=== PATIENT | male | born 1945 | race Caucasian/White ===

== ENCOUNTER 2018-02-17 18:15 | Inpatient (IN) ==
[2018-02-17 19:10] LABS: Basophils % 0.7 %; Eosinophils # 0.2 K/mcL (0.0-0.6); Eosinophils % 3.1 %; Hematocrit 25.7 % (37.5-50.1); Hemoglobin 7.9 g/dL (12.9-16.9); Immature Granulocytes % 0.3 % (0-4); Lymphocytes # 0.8 K/mcL (0.6-4.6); Lymphocytes % 13.3 %; Mean Corpuscular HGB Conc 30.7 g/dL (31.6-35.5); Mean Corpuscular Hemoglobin 18.8 pg (28.0-33.3); Mean Platelet Volume 9.6 fL (9.4-12.4); Monocytes # 0.5 K/mcL (0.0-1.3); Monocytes % 8.1 %; Neutrophils # 4.3 K/mcL (1.6-8.9); Platelet Count 191 K/mcL (140-400); Red Blood Count 4.21 M/mcL (4.19-5.50); Red Cell Distribution Width 15.8 % (11.5-14.5); Segmented Neutrophils % 74.5 %
--- NOTE | 2018-02-17 19:13 | Emergency Department Note ---
Disposition Clinical Impression: Brain mass Anemia Qualifiers: Anemia type: unspecified type Qualified Code(s): D64.9 - Anemia, unspecified CKD (chronic kidney disease) Qualifiers: Chronic kidney disease stage: unspecified stage Qualified Code(s): N18.9 - Chronic kidney disease, unspecified Disposition: Admitted As Inpatient Condition: Fair Referrals: Teddy Cox MD [Primary Care Provider] - Forms: ED Satisfaction Letter Time of Disposition: 20:38 General Adult HPI - General Chief complaint: ED Weakness Stated complaint: Weakness Time Seen by Provider: 02/17/18 18:17 Source: patient, EMS Limitations: no limitations Nursing Notes Reviewed: Yes Vital Signs Reviewed: Yes - History of Present Illness HPI Narrative: Patient does have a history of anemia with blood transfusions and today presents with complaints of weakness of the left arm and left leg the last 7 days which is worsening and had some intermittent episodes of loss of consciousness today. No falls or injuries. The patient does not have any pain in the head, neck, chest, abdomen or back. No medications specifically for the symptoms. The son is here at bedside and he is visiting from [place] and he tells me then the past with the patient was anemic the patient improved with a blood transfusion. The patient does not have any slurred speech. According to the son he is not as sharp mentally as usual. The patient does not have any blood in the urine or stool. Patient did hit his head when he fell off the wheelchair about one week ago. I do not see use of anticoagulant medication. Social history: No smoking or alcohol Pain Scale: 5 - Related Data Home Medications Medication Instructions Recorded Confirmed Naproxen Sodium [Aleve] 440 mg PO HS PRN 02/17/18 02/17/18 Allergies Allergy/AdvReac Type Severity Reaction Status Date / Time No Known Allergies Allergy Verified 02/17/18 19:01 Review of Systems: Constitutional: No fever Vision: No blurred vision ENT: No rhinorrhea Respiratory: No cough Allergic: No allergies : No blood in urine GI: No blood in stool Hematologic: No bruising Dermatologic: No skin rash Musculoskeletal: No pain in the extremities Neuro: No numbness of the extremities Past Medical History - Past Medical History Medical history: Reports: atrial fibrillation, cancer, diabetes, hypertension, renal disease, other Surgical history: Reports: cancer surgery, colectomy, orthopedic, other, other Psychiatric history: Reports: no psych history - Social History Smoking Status: Never smoker Smokeless Tobacco Status: No Alcohol use: Reports: none Drug use: Reports: none Physical Exam CONSTITUTIONAL: Alert, he knows the year is 2017 but thought the month was February and not sure of the day of the week, well-nourished, well appearing, in no apparent distress HEAD: Normocephalic; atraumatic. EYES: PERRL, no scleral icterus. NOSE: The nose is normal in appearance without rhinorrhea RESP: Normal chest excursion with respiration; breath sounds clear and equal bilaterally; no wheezes, rhonchi, or rales CARD: Regular rhythm, without murmurs, rub or gallop ABD: Non-distended; non-tender, soft,without rigidity, rebound or guarding SKIN: Normal for age and race; warm and dry; no apparent lesions - General Limitations: no limitations General appearance: alert, in no apparent distress Course Vital Signs Temperature 97.8 F 02/17/18 18:40 Pulse Rate 83 02/17/18 18:40 Respiratory Rate 16 02/17/18 18:40 Blood Pressure 184/82 02/17/18 18:40 O2 Sat by Pulse Oximetry 100 02/17/18 18:40 Temperature 97.8 F 02/17/18 18:40 Pulse Rate 83 02/17/18 18:40 Respiratory Rate 16 02/17/18 18:40 Blood Pressure 184/82 02/17/18 18:40 O2 Sat by Pulse Oximetry 100 02/17/18 18:40 Oxygen Delivery Oxygen Delivery Room Air Medical Decision Making - [facility] Narrative Medical decision making narrative: Patient's symptoms are concerning for stroke with the left-sided numbness of the left arm and left leg the patient does have testing ordered including CAT scan of the brain, labs and I did review the patient's EKG showing normal sinus rhythm with a rate of 86 and there is evidence of first-degree AV block, this does have minimal low voltage but not quite a degree of the previous EKG from primary 2015. Without acute ischemic change or evidence of arrhythmia [address] I did speak with Dr. Driss [email or web address] m oncology and we discussed the results of the CT scan and the patient's history of colon cancer 2 years ago and plan will be to admit the patient to the hospitalist, Decadron 10 mg IV and then 4 mg every 6 hours, IV Protonix and I did write for the initial dose of Decadron as well as Protonix. Additionally he would like a MRI scan done [place] and I did call and speak with MR and they will do that scan [place] and I also then spoke with the hospitalist accepts the patient for admission and they will follow-up the results of the MRI scan that is being done [place]'s longest results are available tonight or before the morning. The patient is bright and alert. His stroke scale is 0. I did talk the patient And They Do Understand the Results of the Testing and the Severity of Illness. 2033 - Lab Data Lab results reviewed: Yes I reviewed the patient's lab results. Result diagrams: 02/17/18 18:50 02/17/18 18:50 Lab Results 02/17/18 02/17/18 Range/Units 18:50 18:50 WBC 5.8 (4.3-11.1) K/mcL RBC 4.21 (4.19-5.50) M/mcL Hgb 7.9 L (12.9-16.9) g/dL Hct 25.7 L (37.5-50.1) % MCV 61.0 L (83.0-100.0) fL MCH 18.8 L (28.0-33.3) pg MCHC 30.7 L (31.6-35.5) g/dL RDW 15.8 H (11.5-14.5) % Plt Count 191 (140-400) K/mcL MPV 9.6 (9.4-12.4) fL Immature Gran % 0.3 (0-4) % Seg Neutrophils % 74.5 % Lymphocytes % 13.3 % Monocytes % 8.1 % Eosinophils % 3.1 % Basophils % 0.7 % Neutrophils # 4.3 (1.6-8.9) K/mcL Lymphocytes # 0.8 (0.6-4.6) K/mcL Monocytes # 0.5 (0.0-1.3) K/mcL Eosinophils # 0.2 (0.0-0.6) K/mcL Basophils # 0.0 (0.0-0.2) K/mcL Hypochromasia Present A (Not Present) Microcytosis Present A (Not Present) Sodium 136 (136-145) mEq/L Potassium 5.0 (3.5-5.1) mEq/L Chloride 107 (98-107) mEq/L Carbon Dioxide 22 L (23-29) mEq/L BUN 44 H (8-23) mg/dL Creatinine 2.25 H (0.70-1.30) mg/dL Est GFR ( Amer) 35 L (> 60) Est GFR (Non-Af Amer) 29 L (> 60) BUN/Creatinine Ratio 20 (6-26) Glucose 144 H (70-105) mg/dL Calculated Osmolality 296 (280-300) Calcium 9.3 (8.6-10.3) mg/dL Total Bilirubin 0.4 (0.3-1.0) mg/dL Direct Bilirubin 0.1 (0.0-0.2) mg/dL Indirect Bilirubin 0.3 (0.0-1.2) mg/dL AST 27 (13-39) Units/L ALT 13 (7-52) Units/L Alkaline Phosphatase 111 H (34-104) Units/L Troponin I < 0.03 (< 0.04) ng/mL Serum Total Protein 7.9 (6.4-8.9) g/dL Albumin 4.1 (3.5-5.7) g/dL Globulin 3.8 H (2.4-3.5) g/dL Albumin/Globulin Ratio 1.1 (1.1-2.2) Ethyl Alcohol < 10 (Less than 10) mg/dL - Radiology Data Radiology results reviewed: Yes I reviewed the patient's radiology results. NIH Stroke Scale - Level of Consciousness LOC: Alert - LOC Questions LOC Questions: Answers both correctly - LOC Commands LOC Commands: Performs both correctly - Best Gaze Best Gaze: Normal - Visual Visual: No visual loss - Facial Palsy Facial Palsy: Normal - Motor Arms Motor Arm-Left: No drift for 10 seconds Motor Arm-Right: No drift for 10 seconds - Motor Legs Motor Leg-Left: No drift for 5 seconds Motor Leg-Right: No drift for 5 seconds - Limb Ataxia Limb Ataxia: Normal, No Ataxia - Sensory Sensory: Normal - Best Language Best Language: No aphasia - Dysarthria Dysarthria: Normal - Extinction and Inattention Extinction and Inattention: Normal - NIHSS Total Score NIHSS Total Score: 0
[2018-02-17 19:30] LABS: Alanine Aminotransferase 13 Units/L (7-52); Albumin 4.1 g/dL (3.5-5.7); Albumin/Globulin Ratio 1.1 (1.1-2.2); Alkaline Phosphatase 111 Units/L (34-104); Aspartate Amino Transferase 27 Units/L (13-39); BUN/Creatinine Ratio 20 (6-26); Bilirubin,Direct 0.1 mg/dL (0.0-0.2); Bilirubin,Indirect 0.3 mg/dL (0.0-1.2); Bilirubin,Total 0.4 mg/dL (0.3-1.0); Blood Urea Nitrogen 44 mg/dL (8-23); Calcium 9.3 mg/dL (8.6-10.3); Carbon Dioxide 22 mEq/L (23-29); Chloride 107 mEq/L (98-107); Ethanol < 10 mg/dL (Less than 10); Globulin 3.8 g/dL (2.4-3.5); Glucose 144 mg/dL (70-105); Osmolality,Calculated 296 (280-300); Sodium 136 mEq/L (136-145); Total Protein 7.9 g/dL (6.4-8.9); Troponin I < 0.03 ng/mL (< 0.04); eGFR For Non-African Americans 29 (> 60)
[2018-02-17 19:32] LABS: Hypochromasia Present (Not Present); Microcytosis Present (Not Present)
[2018-02-17] MEDS ORDERED: Dexamethasone 4 MG/ML VIAL IVP ONE (20:14)
[2018-02-17] MEDS ORDERED: Pantoprazole 40 MG VIAL IVP ONE (20:23)
[2018-02-17 22:41] LABS: Bilirubin,Urine Negative (Negative); Blood,Urine Negative (Negative); Clarity,Urine Clear (Clear); Color,Urine Yellow (Yellow); Glucose,Urine (UA) Normal (Normal); Ketones,Urine Negative (Negative); Leukocyte Esterase,Urine Trace (Negative); Nitrite,Urine Negative (Negative); Protein,Urine 100 mg/dL (Neg-Trace); Specific Gravity,Urine 1.015 (1.010-1.025); Urobilinogen,Urine Normal (Normal)
[2018-02-17 22:43] LABS: Bacteria,Urine Moderate per hpf (None-Few); Hyaline Casts,Urine None Seen per lpf (None-Few); RBC,Urine 0-3 per hpf (0-3); Squamous Epithelial Cell,Urine Moderate per lpf (None-Few)
[2018-02-17 22:50] LABS: Amphetamine Screen,Urine Negative ng/mL (Cutoff=1000); Barbiturate Screen,Urine Negative ng/mL (Cutoff=200); Benzodiazepines Screen,Urine Negative ng/mL (Cutoff=200); Cannabinoid Screen,Urine Negative ng/mL (Cutoff = 50); Cocaine Screen,Urine Negative ng/mL (Cutoff= 300); Opiate Screen,Urine Negative ng/mL (Cutoff=300); Phencyclidine Screen,Urine Negative ng/mL (Cutoff=25)
[2018-02-18] MEDS ORDERED: Naloxone 0.4 MG/ML INJ IVP PRN (00:48)
[2018-02-18] MEDS: OXYCODONE Oral CONC 10 MG/0.5 ML ORAL.SYG SL PRN ×2 (01:56→15:57)
[2018-02-18 04:08] LABS: Hematocrit 25.1 % (37.5-50.1); Hemoglobin 7.9 g/dL (12.9-16.9); Mean Corpuscular HGB Conc 31.5 g/dL (31.6-35.5); Mean Corpuscular Hemoglobin 18.8 pg (28.0-33.3); Mean Corpuscular Volume 59.8 fL (83.0-100.0); Mean Platelet Volume 9.7 fL (9.4-12.4); Platelet Count 192 K/mcL (140-400); Red Cell Distribution Width 15.9 % (11.5-14.5)
[2018-02-18 04:22] LABS: Potassium 5.7 mEq/L (3.5-5.1)
[2018-02-18] MEDS: Pantoprazole 40 MG VIAL IVP SCH ×2 (05:22→17:24)
--- NOTE | 2018-02-18 07:29 | Internal Med History&Physical ---
Date of Encounter: 02/17/18 Time of Encounter: 23:50 Internal Medicine - H&P: HPI Chief complaint: Left sided weakness, brain mass Admitted From: Emergency Dept Plans for Post Hospital Care: Home History of present illness: Mr. Salazar is a 72 year old male Patient presented with left arm and left leg numbness that is been worsening over the last several days. He has been experiencing some left-sided weakness for some time but it has been progressing. 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 When he does attempt to walk he does fall so therefore he does not walk much. His son who is visiting from [place] noted that he has also noted a decrease in mental cognition. Due to these concerns he came to the ER for further evaluation. In the ER patient's hemoglobin was 7.9, and BMP showed baseline creatinine of 2.25, (CKD stage III). Chest x-ray showed on acute process. Head CT demonstrated 2.8x3x2.8cm right parietal lobe mass with extensive surrounding basogenic edema that most likely represented a metastatic lesion. There was also mild right to left midline shift measuring 2mm with right cerebral hemisphere sulcal effacement. After discussion with oncology, patient had an MRI ordered that re- demonstrated the mass. They recommended the patient be started on decadron and protonix, and they will consult on him in the morning. Upon my evaluation, patient son is at bedside. Patient denies nausea, vomiting, diarrhea, constipation, chest pain and abdominal pain. No vision changes. No shortness of breath. Past Med Surg Social Fam HX - Past Medical History Medical history: atrial fibrillation, cancer, diabetes, hypertension, renal disease, other Additional medical history: sleep apnea Psychiatric history: no psych history - Past Surgical History Surgical History: cancer surgery, colectomy, orthopedic, other, other Additional surgical history: bilateral eye surgery - tonsils - colonoscopy - Social History Smoking Status: Never smoker Smokeless Tobacco Status: No Alcohol use: none Drug use: none - Family History Mother Adopted: No Living Status: Still Living Hx Family Cardiac Disorders: Yes (mother pace maker) Hx Family Respiratory Disorders: No Hx Family Cancer: Yes (father colon) Hx Family GI Disorders: No Hx Family Genitourinary Disorders: No Hx Family Endocrine Disorder: Yes (DM) Hx Family Musculoskeletal Disorders: No Hx Family Neuromuscular Disorders: No Hx Family Neurologic Disorders: No Hx Family HEENT Disorders: No Hx Family Autoimmune Disorders: No Hx Family Reproductive Disorders: No Hx Family Psychosocial Disorders: No Hx Family Medical Disorders: No Father Adopted: No Family Member Ethnicity: Non- Living Status: Hx Family Cancer: Yes (Colon cancer diagnosed at his 70s.) Internal Medicine - H&P: Meds Naproxen Sodium [Aleve] 440 mg PO HS PRN 02/17/18 [History] Allergy/AdvReac Type Severity Reaction Status Date / Time No Known Allergies Allergy Verified 02/17/18 19:01 All Systems PM: A 10-system review of systems was performed and is negative for pertinent findings except as documented above in the HPI. - Constitutional Vitals: Temp Pulse Resp BP Pulse Ox 97.8 F 84 16 165/84 98 02/18/18 03:31 02/18/18 03:31 02/18/18 03:31 02/18/18 03:31 02/18/18 03:31 General appearance: Present: cooperative, A&O X 3, pleasant, no acute distress, answers questions appropriately Exam: - - Head Head exam: Present: normal inspection - Eye Eye exam: Present: EOMI, normal appearance - Neck Neck exam general surgery: Present: full ROM. Absent: tenderness - Respiratory Respiratory exam: Present: CTAB. Absent: chest wall tenderness, rales, rhonchi, wheezes - Cardiovascular Cardiovascular exam: Present: RRR, systolic murmur. Absent: diastolic murmur Additional comments: Grade 2 systolic murmur - GI/Abdominal GI/Abdominal exam: Present: normal bowel sounds, soft. Absent: tenderness - Extremities Exam Extremities exam: Present: pedal edema, warm, radial pulses palpable and symmetrical. Absent: calf tenderness, tenderness Additional comments: lower right leg amputation, 1+ pitting edema in left leg - Neurological Exam Neurological exam: Present: no focal deficits, strengths equal and symetr throughout. Absent: motor sensory deficit, facial droop, speech deficit - Skin Skin exam: Present: dry, normal color, warm Internal Med - H&P Results - Labs CBC & Chem 7: 02/18/18 03:40 02/18/18 03:40 Labs: Short CBC 02/17/18 02/18/18 Range/Units 18:50 03:40 WBC 5.8 5.7 (4.3-11.1) K/mcL Hgb 7.9 L 7.9 L (12.9-16.9) g/dL Hct 25.7 L 25.1 L (37.5-50.1) % Plt Count 191 192 (140-400) K/mcL Neutrophils # 4.3 (1.6-8.9) K/mcL BMP 02/17/18 02/18/18 18:50 03:40 Sodium 136 135 L Potassium 5.0 5.7 H Chloride 107 107 Carbon Dioxide 22 L 19 L BUN 44 H 43 H Creatinine 2.25 H 2.10 H Glucose 144 H 179 H Calcium 9.3 9.0 Cardiac Enzymes 02/17/18 Range/Units 18:50 Troponin I < 0.03 (< 0.04) ng/mL Liver Function 02/17/18 Range/Units 18:50 Total Bilirubin 0.4 (0.3-1.0) mg/dL Direct Bilirubin 0.1 (0.0-0.2) mg/dL AST 27 (13-39) Units/L ALT 13 (7-52) Units/L Alkaline Phosphatase 111 H (34-104) Units/L Albumin 4.1 (3.5-5.7) g/dL Urine 02/17/18 Range/Units 22:29 Urine Color Yellow (Yellow) Urine Clarity Clear (Clear) Urine pH 6.0 (5.0-8.0) pH Units Ur Specific [place] 1.015 (1.010-1.025) Urine Protein 100 H (Neg-Trace) mg/dL Urine Glucose (UA) Normal (Normal) mg/dL - Impressions ITS Impressions Chest X-Ray 02/17/18 18:35 IMPRESSION: No acute process. D/ / Satnam Rg MD / Satnam Rg MD Interpreting Provider: Satnam Rg MD Head CT 02/17/18 18:36 IMPRESSION: Large hyperdense 2.8 x 3 x 2.8 cm right parietal lobe mass with extensive surrounding vasogenic edema most likely representing a metastatic lesion. Mild right to left midline shift measuring 2 mm with right cerebral hemisphere sulcal effacement. Basilar cisterns are preserved. D/ / Satnam Rg MD / Satnam Rg MD Interpreting Provider: Satnam Rg MD Brain MRI 02/17/18 20:20 IMPRESSION: Redemonstration of right parietal lobe mass. No additional lesions identified on this limited noncontrast exam. D/ / Leroy Silver MD / Leroy Silver MD Interpreting Provider: Leroy Silver MD - Assessment and plan (1) Brain mass Current Visit: Yes Status: Acute Assessment and plan: Could be metastasis from colon cancer which patient has a history of in the past. Oncology notified from the emergency room, will consult on the patient today. Could be because of patient's left-sided weakness. Follow-up oncology recommendations Decadron 10 mg given in the emergency room, continue 4 mg every 6 hours. (2) Anemia of chronic disease Current Visit: No Status: Chronic Assessment and plan: Appears to be at baseline, no active bleeding noted. Patient typed and screened in the emergency room in case patient continues to drop. Continue to monitor Repeat in the morning (3) Type 2 diabetes mellitus Current Visit: No Status: Chronic Assessment and plan: Low-dose insulin sliding scale as needed Monitor sugars with meals and at night Diabetic diet when no longer nothing by mouth Qualifiers: Diabetes mellitus complication status: with unspecified complications Qualified Code(s): E11.8 - Type 2 diabetes mellitus with unspecified complications (4) DVT prophylaxis Current Visit: No Status: Acute Assessment and plan: SCD to left leg - Time Spent With Patient Total time spent is greater than 50% in coordination of care (as documented) at patient's floor/unit and/or counseling patient:
--- NOTE | 2018-02-18 09:06 | Internal Med Progress Note ---
Hospitalist Progress Note - Encounter Date of Encounter: 02/18/18 Time of Encounter: 09:04 - Subjective Interval History: Patient seen and examined this morning at bedside. No acute overnight events. Alert and oriented 3. Aware of brain lesion. Has history of blurring and decreased vision from his diabetes and glaucoma. Denies any double vision, n umbness. Patient left-sided weakness much improved subjectively and is able to lift his leg which he could not do yesterday. - Exam Vitals: Temp Pulse Resp BP Pulse Ox 98.3 F 87 18 155/71 97 02/18/18 07:56 02/18/18 07:56 02/18/18 07:56 02/18/18 07:56 02/18/18 07:56 Exam: General: In no acute distress. Conversant. Obese. Respiratory exam: CTAB. no accessory muscle use, rales, rhonchi, wheezes Cardiovascular exam: RRR, +S1, +S2. systolic murmur, no gallop, rubs. GI/Abdominal exam: Non-tender, Non-distended, normal bowel sounds, soft, no peritoneal signs. Extremities exam: full ROM on Lt, 1+ pedal edema, warm, pulses palpable in Lt lower extremities. no calf tenderness, Rt Leg BKA amputation Neurological exam: CN II-XII intact, AO X3, no facial droop, speech deficit. 4 / 5 strength in all extremities. Skin exam: Chronic dermatitis changes in right lower extremity - Summary of Assessment and Plan Summary of Assessment and Plan: Weakness - Brain mass on Rt parietal lobe with extensive vasogenic edema representing metastatic lesion. Mild midline shift - h/o colon cancer - Oncology consulted - Given Decadron 10 mg in the ER. c/w 4 mg q6h and pantoprazole. Symptomatically improved. - Consult PT/OT. Anemia of chronic disease - At baseline - no active bleeding - Continue to monitor. Known history. - Possible related to CKD. 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 Hyperkalemia - Possibly related to CKD - place on tele - Get EKG. - Will give kayexalate one dose. Type 2 diabetes mellitus - c/w sliding scale and accuchecks - currently NPO. Do bedside swallow. Start diabetic diet if able to which he likely able to. DVT prophylaxis - SCD to left leg - Time Spent with Patient Total time spent is greater than 50% in coordination of care (as documented) at patient's floor/unit and/or counseling patient: Internal Medicine: Result - Labs CBC & Chem 7: 02/18/18 03:40 02/18/18 03:40 Labs: Short CBC 02/17/18 02/18/18 Range/Units 18:50 03:40 WBC 5.8 5.7 (4.3-11.1) K/mcL Hgb 7.9 L 7.9 L (12.9-16.9) g/dL Hct 25.7 L 25.1 L (37.5-50.1) % Plt Count 191 192 (140-400) K/mcL Neutrophils # 4.3 (1.6-8.9) K/mcL BMP 02/17/18 02/18/18 18:50 03:40 Sodium 136 135 L Potassium 5.0 5.7 H Chloride 107 107 Carbon Dioxide 22 L 19 L BUN 44 H 43 H Creatinine 2.25 H 2.10 H Glucose 144 H 179 H Calcium 9.3 9.0 Cardiac Enzymes 02/17/18 Range/Units 18:50 Troponin I < 0.03 (< 0.04) ng/mL Liver Function 02/17/18 Range/Units 18:50 Total Bilirubin 0.4 (0.3-1.0) mg/dL Direct Bilirubin 0.1 (0.0-0.2) mg/dL AST 27 (13-39) Units/L ALT 13 (7-52) Units/L Alkaline Phosphatase 111 H (34-104) Units/L Albumin 4.1 (3.5-5.7) g/dL Urine 02/17/18 Range/Units 22:29 Urine Color Yellow (Yellow) Urine Clarity Clear (Clear) Urine pH 6.0 (5.0-8.0) pH Units Ur Specific [place] 1.015 (1.010-1.025) Urine Protein 100 H (Neg-Trace) mg/dL Urine Glucose (UA) Normal (Normal) mg/dL - Impressions Impressions Chest X-Ray 02/17/18 18:35 IMPRESSION: No acute process. D/ / Satnam Rg MD / Satnam Rg MD Interpreting Provider: Satnam Rg MD Head CT 02/17/18 18:36 IMPRESSION: Large hyperdense 2.8 x 3 x 2.8 cm right parietal lobe mass with extensive surrounding vasogenic edema most likely representing a metastatic lesion. Mild right to left midline shift measuring 2 mm with right cerebral hemisphere sulcal effacement. Basilar cisterns are preserved. D/ / Satnam Rg MD / Satnam gR MD Interpreting Provider: Satnam Rg MD Brain MRI 02/17/18 20:20 IMPRESSION: Redemonstration of right parietal lobe mass. No additional lesions identified on this limited noncontrast exam. D/ / Leroy Silver MD / Leroy Silver MD Interpreting Provider: Leroy Silver MD Consult Discharge Plan - Plan Referrals: Teddy Cox MD [Primary Care Provider] -
[2018-02-18 12:01] VITALS: BP 126/74
--- NOTE | 2018-02-18 14:22 | Electrocardiograph Report ---
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
[2018-02-18 15:13] LABS: Carcinoembryonic Antigen 39.7 ng/mL (Less than 5.0)
[2018-02-18 15:27] LABS: Folate > 22.3 ng/mL (3.0-16.0); Vitamin B12 > 1500 pg/mL (250-1100)
--- NOTE | 2018-02-18 15:50 | Oncology Inp Consult Note ---
Date of Encounter: 02/18/18 Time of Encounter: 14:00 Assessment and Plan (1) Brain mass Status: Acute Assessment and plan: Presented with significant LLE and LUE weakness Brain MRI without contrast revealed large right parietal lobe mass measuring 3.3 x 3.6 x 3.3 cm in diameter, with significant edema, local mass effects and ozeyb-[id number] midline shift. He also reports subjective blurry vision, increased peripheral neuropathy from baseline and difficulty gripping items with LUE He was initiated on dexamethasone, currently on 4 mg IV Q6H, with improvement in his strength almost back to baseline Discussed case with radiation oncologist, Dr. España, who recommended transfer to tertiary care center for neurosurgical evaluation to determine appropriateness for resection, given size, mass effect and symptom presentation. CEA obtained today resulted elevated at 39 (previously 4.4). Mr. Salazar is in need of further workup including CT chest/abdomen/pelvis, however, discussed with patient and family that his brain mass causing his symptom presentation should first item of importance and that further diagnostic workup may be obtained at tertiary facility to expedite his transfer and to assist with continuity. His elevated CEA raise suspicion of recurrent colon cancer, although without diagnostic imaging and pathology, other etiology still remain within differential - Data of Consult Patient: known to practice within the last 3 years Consult date: 02/18/18 Requesting Physician: Delores Inman MD Primary Care Provider: Teddy Cox MD - Consult Narrative Reason for consult: Right parietal mass History of present illness: Mr. 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 Chemotherapy was not pursued. pT3, 5 out of 20 lymph nodes were positive. He underwent colonoscopy 12/18/2015, revealed a polyp at anastomosis, pathology showed tubular adenoma and fibrino purulent exudate. CEA at that time was 4.4. Patient has been lost to follow up since November 2015. Most recently, Mr. Salazar presented to [facility] ED with report of worsening LUE and LLE weakness. Symptoms began approximately 2 weeks prior and worsened to the point that he could not attempt to stand on leg or lift his left lower extremity. He is a right BKA since 2016 and mainly uses a wheelchair throughout the day. He lives at home alone with the assistance of family who live nearby. He reports "crashing his wheelchair" and hitting his head on his porch swing a few days prior to his presentation. He felt as though his weakness may be secondary to a concussion which prompted his presentation. CT of the head was obtained in ER which revealed Large hyperdense 2.8 x 3 x 2.8 cm right parietal lobe mass with extensive surrounding vasogenic edema most likely representing a metastatic lesion. Mild right to left midline shift measuring 2 mm with right cerebral hemisphere sulcal effacement. Basilar cisterns are preserved. MRI of the brain without contrast was then obtained which revealed redemonstration of a large heterogeneously T2 isointense to dee matter lesion within the right parietal lobe measuring 3.3 x 3.6 x 3.3 cm in diameter, with significant surrounding edema and local mass effect characterized by sulcal effacement. There is also a 2.9 mm eacer-ar-vqfz midline shift. No bleed or shift is identified. He was given a bolus dose of 10 mg dexamethasone IV x1, followed by scheduled dose of dexamethasone 4 mg IV Q6H. Upon examination today, his LLE and LUE weakness has improved almost back to baseline. He denies headaches, dizziness, nausea, vomiting, chest pain, abdom inal pain, neck pain, fevers, chills,bowel changes, urinary changes, saddle anesthesia, lower extremity pain or edema. He does note increased blurry vision over the past 2 weeks. He has chronic tinnitus of his right ear which has been unchanged, denies hearing changes. He has baseline peripheral neuropathy symptoms but reports increase in symptoms to left hand/right foot over the past two weeks. He has had difficulty gripping items with his left hand. He also reports worsening back pain, states he passed kidney stones recently but continues to have lingering pain to his sacral area. He reports regular bowel movements, denies pain with bowel movement, melena, hematochezia, odynophagia or dysphagia. Denies appetite changes or unintended weight loss. Past Med Surg Social Fam HX - Past Medical History Medical history: atrial fibrillation, cancer, diabetes, hypertension, renal disease, other Additional medical history: sleep apnea Psychiatric history: no psych history - Past Surgical History Surgical History: cancer surgery, colectomy, orthopedic, other, other Additional surgical history: bilateral eye surgery - tonsils - colonoscopy - Social History Smoking Status: Never smoker Smokeless Tobacco Status: No Alcohol use: none Drug use: none - Family History Mother Adopted: No Living Status: Still Living Hx Family Cardiac Disorders: Yes (mother pace maker) Hx Family Respiratory Disorders: No Hx Family Cancer: Yes (father colon) Hx Family GI Disorders: No Hx Family Genitourinary Disorders: No Hx Family Endocrine Disorder: Yes (DM) Hx Family Musculoskeletal Disorders: No Hx Family Neuromuscular Disorders: No Hx Family Neurologic Disorders: No Hx Family HEENT Disorders: No Hx Family Autoimmune Disorders: No Hx Family Reproductive Disorders: No Hx Family Psychosocial Disorders: No Hx Family Medical Disorders: No Father Adopted: No Family Member Ethnicity: Non- Living Status: Hx Family Cancer: Yes (Colon cancer diagnosed at his 70s.) Medications and Allergies Naproxen Sodium [Aleve] 440 mg PO HS PRN 02/17/18 [History] Dexamethasone [Decadron] 4 mg PO Q6H tablet 02/18/18 [Rx] Allergy/AdvReac Type Severity Reaction Status Date / Time No Known Allergies Allergy Verified 02/17/18 19:01 Constitutional: Present: frequent falls (recently secondary to LLE weakness). Absent: anorexia, chills, fatigue, fever(s), night sweats, weakness, weight loss Eyes: Present: blurry vision. Absent: diplopia Nose, mouth and throat: Absent: abnormal hearing (right ear tinnitus at baseline), dizziness, dysphagia, neck pain, odynophagia Cardiovascular: Absent: chest pain, palpitations Respiratory: Absent: cough, dyspnea, hemoptysis Gastrointestinal: Absent: abdominal pain, change in bowel habits, fecal inconti nence, hematochezia, melena, nausea, odynophagia, vomiting Genitourinary: Absent: dysuria, urinary incontinence Musculoskeletal: Present: as per HPI, numbness, tingling Additional comments: LUE weakness, LLE weakness Integumentary: Absent: rash, wounds Neurological: Present: as per HPI, focal weakness, frequent falls. Absent: headache(s) Hematologic/Lymphatic: Present: as per HPI Oncology - Exam - Constitutional General appearance: cooperative, no acute distress, no febrile - Head Head exam: Present: atraumatic - Eye Eye exam: Present: PERRL. Absent: nystagmus - ENT ENT exam: Present: mucous membranes moist, normal oropharynx - Respiratory Respiratory exam: Present: decreased breath sounds, CTAB. Absent: respiratory distress - Cardiovascular Cardiovascular exam: Present: RRR, +S1, +S2 - GI/Abdominal GI/Abdominal exam: Present: normal bowel sounds, soft. Absent: guarding, rebound, tenderness - Extremities Exam Extremities exam: Absent: calf tenderness Additional comments: Right BKA - Neurological Exam Neurological exam: Present: alert, CN II-XII intact, oriented X3. Absent: facial droop, speech deficit Additional comments: LUE 4/5, LLE 4/5, RUE 5/5, difficulty with ankle dorsiflexion 3/5 - Psychiatric Psychiatric exam: Present: normal affect, normal mood - Skin Skin exam: Present: dry, intact, normal color, warm Additional comments: LLE chronic skin changes secondary to venous insufficiency Consult Discharge Plan - Plan Referrals: Teddy Cox MD [Primary Care Provider] - Inpatient Charges Provider: Jyoti Santiago CNP (CHARGING PROVIDER IS DR. Stefan ESPAÑA)
--- NOTE | 2018-02-18 16:57 | Electrocardiograph Report ---
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
--- NOTE | 2018-02-18 17:53 | Discharge Summary ---
- NOTES TO OUTPATIENT PROVIDER Notes to Outpatient Provider: Patient transferred to [facility] for neurosurgical evaluation for brain mass Orders not resulted at time of discharge: Pending orders 02/17/18 22:29 Culture,Urine [RM] Stat Date of Encounter: 02/18/18 Time of Encounter: 17:51 - Discharge Diagnosis (1) Anemia of renal disease Priority: Secondary Status: Acute (2) History of colon cancer Priority: Secondary Status: Acute (3) Brain mass Priority: Primary Status: Acute (4) CKD (chronic kidney disease) stage 3, GFR 30-59 ml/min Priority: Secondary Status: Chronic (5) Type 2 diabetes mellitus Priority: Secondary Status: Chronic Qualifiers: Diabetes mellitus chcf insulin use: without intermediate project manager use Diabetes mellitus complication status: with unspecified complications Qualified Code(s): E11.8 - Type 2 diabetes mellitus with unspecified complications Hospital course: Mr. Salazar is a 72 year old male with past medical history of diabetes, hypertension, chronic kidney disease, sleep apnea came in with complain of fall and left-sided weakness for about a week or 2. Patient was found to have large hyperdense mass on CT which was confirmed by MRI which showed large heterogeneously T2 eye so intense creamier lesion in in the right parietal lobe about 3 x 3 x 3 cm with surrounding vasogenic edema and mild to 0.9 mm right to left midline shift suspected of metastasis lesion. Patient was started on dexamethasone. Patient has history of adenocarcinoma of colon with partial colectomy in 2015. Suspicious primary being: However currently undetermined. Oncology consult was obtained who had radiation oncology consultation who recommended transfer for neurosurgical evaluation. After discussion with the patient and family member at bedside also agreed to be transferred to [place] for neurosurgical evaluation and possible surgery. Discharge discussed with: patient, family, social work, [employer] [facility] consultant - Time Spent with Patient Total time spent providing and/or coordinating discharge services: Greater than 30 minutes (46) - Discharge Medications Home Medications: Naproxen Sodium [Aleve] 440 mg PO HS PRN 02/17/18 [History] Dexamethasone [Decadron] 4 mg PO Q6H tablet 02/18/18 [Rx] Allergies/Adverse Reactions: Allergy/AdvReac Type Severity Reaction Status Date / Time No Known Allergies Allergy Verified 02/17/18 19:01 Date of admission: 02/18/18 17:10 Primary care physician: Teddy Cox MD Consults: 02/17/18 20:32 Consult to Oncology [CONS] Stat Consulting Provider: [facility] Reason for Consult: brain met Time Notified: 20:20 Call Completed: Yes 02/18/18 09:38 Consult to Occupational Therapy [CONS] Routine Comment: Evaluate, develop and implement POC Reason for Consult: fall, improve mobility Does patient have active BEDREST order?: No Is patient medically & hemodynamically stable?: Yes Consult to Physical Therapy [CONS] Routine Comment: Evaluate, develop and implement POC Reason for Consult: fall, improve mobility Does patient have active BEDREST order?: No Is patient medically & hemodynamically stable?: Yes 02/18/18 13:30 Consult to Oncology Radiation [CONS] Routine Consulting Provider: Oncology Radiation Jeanne Reason for Consult: Right perietal lobe mass 3.3x3.6x3.3 cm, h/o IIIB adenocarcinoma of the colon s/p partial colectomy, declined chemo, no follow up since 2015 Call Completed: Yes Discharging clinician: Delores Inman - Constitutional Vitals: Temp Pulse Resp BP Pulse Ox 98.3 F 81 18 126/74 99 02/18/18 11:59 02/18/18 11:59 02/18/18 11:59 02/18/18 11:59 02/18/18 11:59 General appearance: Present: pleasant, no acute distress, answers questions appropriately Exam: General: In no acute distress. Conversant. Obese. Respiratory exam: CTAB. no accessory muscle use, rales, rhonchi, wheezes Cardiovascular exam: RRR, +S1, +S2. systolic murmur, no gallop, rubs. GI/Abdominal exam: Non-tender, Non-distended, normal bowel sounds, soft, no peritoneal signs. Extremities exam: full ROM on Lt, 1+ pedal edema, warm, pulses palpable in Lt lower extremities. no calf tenderness, Rt Leg BKA amputation Neurological exam: CN II-XII intact, AO X3, no facial droop, speech deficit. 4 / 5 strength in all extremities. Skin exam: Chronic dermatitis changes in right lower extremity - Patient Status Disposition: Transfer Hospital Swing Bed - Discharge Instructions Follow Up With: Teddy Cox MD [Primary Care Provider] - - Diet and Activity Activity: as per physical therapy
== END 2018-02-18 19:07 | disposition other institution (70) | DRG 70 ==
LOC: 2ANU 18:15 → EMEROOARM 18:15 → SUATTDRO 20:58 → 2ANU 22:41
PROVIDERS: ADMIT Family Medicine; ATTEND Internal Medicine